=== PATIENT | female | born 1990 | race Caucasian/White ===

== ENCOUNTER 2023-04-18 07:31 | Emergency (ER) | payer MEDICAID ==
[2023-04-18] MEDS ORDERED: Sodium Chloride 0.9% 10 ML Syringe FLUSH PRN (07:40)
[2023-04-18] MEDS ORDERED: Naloxone 0.4 MG/ML SDV IVPUSH PRN (07:40)
[2023-04-18] MEDS ORDERED: Famotidine 20 MG/2 ML SDV IVPUSH ONE (07:40)
[2023-04-18] MEDS ORDERED: Ondansetron 4 MG/2 ML SDV IVPUSH ONE (07:40)
[2023-04-18] MEDS ORDERED: Sodium Chloride 0.9% 1,000 ML IV ONE (07:40)
[2023-04-18] MEDS ORDERED: Morphine 4 MG/ML Syringe IVPUSH ONE ×2 (07:40→08:38)
[2023-04-18] MEDS ORDERED: Sodium Chloride 0.9% 2.5 ML Syringe FLUSH PRN (07:40)
[2023-04-18 07:46] LABS: BASOPHILS PERCENT AUTO 0.3 % (0.0-1.5); EOSINOPHILS ABSOLUTE AUTO 0.1 K/uL (0.0-0.7); EOSINOPHILS PERCENT AUTO 0.9 % (0.0-7.0); HEMATOCRIT 43.4 % (36.0-46.0); HEMOGLOBIN 14.4 g/dL (12.0-16.0); LYMPHOCYTES PERCENT AUTO 20.2 % (16.0-40.0); MEAN CORPUSCULAR HGB CONC 33.2 g/dL (31.0-37.0); MEAN CORPUSCULAR VOLUME 93.3 fL (80.0-98.0); MONOCYTES ABSOLUTE AUTO 1.4 K/uL (0.0-0.8); MONOCYTES PERCENT AUTO 9.4 % (0.0-15.0); NEUTROPHILS ABSOLUTE AUTO 10.3 K/uL (1.4-5.7); NEUTROPHILS PERCENT AUTO 69.2 % (48.0-80.0); NRBC ABSOLUTE 0 K/uL; PLATELET COUNT,PLT 425 K/uL (150-400); RED BLOOD CELL COUNT 4.65 M/uL (4.30-5.90); WHITE BLOOD CELL COUNT,WBC 14.84 K/uL (4.0-11.0)
[2023-04-18] MEDS ORDERED: Morphine 2 MG/ML SYRINGE IVPUSH ONE (08:08)
[2023-04-18 08:12] LABS: ALBUMIN 3.5 g/dL (3.4-5.0); BILIRUBIN TOTAL 0.3 mg/dL (0.2-1.0); CALCIUM 8.4 mg/dL (8.5-10.1); CARBON DIOXIDE,CO2 22.2 mmol/L (21.0-32.0); CREATININE 0.9 mg/dL (0.6-1.0); EST CRCL DRUG DOSING (CG) 84.79 mL/min; MAGNESIUM 1.9 mg/dL (1.8-2.4); POTASSIUM,K 3.9 mmol/L (3.5-5.1); PROTEIN TOTAL,TP 6.9 g/dL (6.4-8.2)
[2023-04-18] MEDS ORDERED: Lidocaine 4% 1 each Patch TOP SCH (09:00)
[2023-04-18] MEDS ORDERED: Iopamidol 755 Mg/ML 100 ML Bottle IVPUSH ONE (09:10)
[2023-04-18] MEDS ORDERED: Sucralfate Suspension 1 GM/10 ML Cup PO ONE (09:24)
[2023-04-18] MEDS ORDERED: Ketorolac 30 MG/ML SDV IVPUSH ONE (09:24)
[2023-04-18] MEDS ORDERED: HYDROmorphone 1 MG/ML Syringe IVPUSH ONE (09:24)
== END 2023-04-18 10:50 | disposition home or self-care (01) ==
LOC: MW.ED 07:31
DX: R07.9 Chest pain, unspecified (principal); Z88.8 Allergy status to other drugs, medicaments and biological substances; Z91.09 Other allergy status, other than to drugs and biological substances
CPT/HCPCS: 36415; 71275; 80053; 83690; 83735; 84484; 84703; 85025; 85379; 93005; 96361; 96374; 96375; 96376; 99285; A9270; J1170; J1885; J2270; J2405; J3490; J7030; Q9967; 93010; 99284